=== PATIENT | female | born 2000 | race Caucasian/White ===

== ENCOUNTER 2020-04-07 17:29 | Emergency (ER) | payer OTHER ==
[~2020-04-07] VITALS: Ht 165.1 cm; Wt 61.2 kg
[2020-04-07 17:49] VITALS: BP 118/80
[2020-04-07] MEDS ORDERED: IBUPROFEN 600 MG TAB PO ONE (18:25)
--- NOTE | 2020-04-07 18:26 | NUR ---
PT REQUESTING PAIN MEDICATION, DR MCCULLOUGH MADE AWARE
--- NOTE | 2020-04-07 18:27 | NUR ---
C/O SUDDEN LEFT CHEST/BREAST PAIN 05/16 X THIS AM. PT UNDERWENT SPINAL FUSION FOR HER SCOLIOSIS LAST WEEK. REPORTS SHE IS TAKING HER PRESCRIBED PERCOCET WITH RELIEF BUT IS CONCERNED FOR THE SUDDEN PAIN THAT STARTED TODAY. DENIES ANY POST OP COMPLICATIONS. PT ALERT AND AWAKE. VS STABLE. HX OF SCOLIOSIS & SPINAL FUSION 04/01/20 AT [facility].
--- NOTE | 2020-04-07 18:32 | NUR ---
XRAY AT BEDSIDE
--- NOTE | 2020-04-07 18:35 | NUR ---
MOTRIN PO ADMINISTERED
[2020-04-07 19:05] VITALS: BP 113/67
--- NOTE | 2020-04-07 19:05 | NUR ---
Patient discharged with v/s stable. Written and verbal after care instructions given and explained REGARDING MUSCLE PAIN. Patient alert, oriented and verbalized understanding of instructions. Wheel Chair Assisted with to car. All questions addressed prior to discharge. ID band removed. Patient advised to follow up with PMD. Rx of NAPROXEN PRN given. Patient educated on indication of medication including possible reaction and side effects. Opportunity to ask questions provided and answered. INSTRUCTED MOTHER AND PT THAT XRAY IS WNL
--- NOTE | 2020-04-07 19:05 | NUR ---
NADR, PAIN 01/14
== END 2020-04-07 19:05 | disposition home or self-care (01) ==
LOC: MED 17:29
DX: R07.89 Other chest pain (principal); Z98.890 Other specified postprocedural states
CPT/HCPCS: 71045; 99283